=== PATIENT | male | born 1965 | race Caucasian/White ===

== ENCOUNTER → 2018-05-26 10:53 | Emergency (ER) | payer OTHER ==
[~2018-05-26 10:53] MED LIST: Ketorolac INJ* 60 MG/2 ML VIAL IM ONE
--- NOTE | 2018-05-26 11:51 | ED ---
Lower Extremity - HPI Summary HPI Summary: A 53 y/o M presents to ED with c/o sudden-onset, severe R knee pain onset [employer]. Patient was at work and moving a chemical drum when his R foot slipped out from underneath him, and his knee bent inward. He heard or felt a sudden snap and pop. He was not able to stand after the incident. The pain was also shooting down his RLE. Associated sx: mild R hip pain. Denies R ankle pain. He denies any previous injury to his RLE nor to his back. He takes Prilosec, Lexapro daily. - History of Current Complaint Chief Complaint: EDExtremityLower Stated Complaint: FALL AT WORK KNEE INJURY Time Seen by Provider: 05/26/18 10:59 Hx Obtained From: Patient Onset of Pain: Immediate, Post Accident, Prior to Arrival Onset/Duration: Still Present Severity Initially: Moderate Severity Currently: Moderate Pain Intensity: 4 Pain Scale Used: 0-10 Numeric Timing: Constant Location: Is Discrete @ - R knee Associated Signs And Symptoms: Positive: Knee Pain, Other - pos: mild R hip pain ; neg: R ankle pain Able to Bear Weight: No Related History: Occupational Injury PMH/Surg Hx/FS Hx/Imm Hx Previously Healthy: Yes Musculoskeletal History: Denies: Hx Back Problems Opthamlomology History: Denies: Hx Legally Blind EENT History: Denies: Hx Deafness Neurological History: Denies: Hx Dementia Infectious Disease History: No Infectious Disease History: Denies: Traveled Outside the [place] in Last 30 Days - Social History Occupation: Employed Full-time Lives: With Family Alcohol Use: Daily Hx Substance Use: No Substance Use Type: Reports: None Hx Tobacco Use: No Smoking Status (MU): Never Smoked Tobacco Review of Systems Negative: Fever, Chills Negative: Erythema Negative: Sore Throat Negative: Chest Pain Negative: Shortness Of Breath, Cough Negative: Abdominal Pain, Vomiting, Nausea Negative: dysuria, hematuria Positive: Arthralgia - pos: R knee pain, mild R hip pain. neg: R ankle pain. Negative: Myalgia, Edema Negative: Rash Neurological: Other - neg: dizziness All Other Systems Reviewed And Are Negative: Yes Physical Exam - Summary Physical Exam Summary: Constitutional: Well-developed, Well-nourished, Alert. (-) Distressed Skin: Warm, Dry HENT: Normocephalic; Atraumatic Eyes: Conjunctiva normal Neck: Musculoskeletal ROM normal neck. (-) JVD, (-) Stridor, (-) Tracheal deviation Cardio: Rhythm regular, rate normal, Heart sounds normal; Intact distal pulses; The pedal pulses are 2+ and symmetric. Radial pulses are 2+ and symmetric. (-) Murmur Pulmonary/Chest wall: Effort normal. (-) Respiratory distress, (-) Wheezes, (-) Rales Abd: Soft, (-) epigastric tenderness, (-) Distension, (-) Guarding, (-) Rebound Musculoskeletal: (-) Edema. RLE: Significant pain with valgus stress and no bony tenderness. Unable to extend RLE due to pain, cannot r/o patella tendon injury Lymph: (-) Cervical adenopathy Neuro: Alert, Oriented x3 Psych: Mood and affect Normal Triage Information Reviewed: Yes Vital Signs On Initial Exam: Initial Vitals Temp Pulse Resp BP Pulse Ox 98.2 F 73 18 166/92 94 05/26/18 10:55 05/26/18 10:55 05/26/18 10:55 05/26/18 10:55 05/26/18 10:55 Vital Signs Reviewed: Yes Diagnostics - Vital Signs Vital Signs Temp Pulse Resp BP Pulse Ox 05/26/18 10:55 98.2 F 73 18 166/92 94 - Laboratory Lab Statement: Any lab studies that have been ordered have been reviewed, and results considered in the medical decision making process. - Radiology R HIP/PELVIS Radiology Interpretation Completed By: Radiologist Summary of Radiographic Findings: IMPRESSION: No fracture of the right hip or pelvis. ED provider has reviewed this report. R ANKLE Radiology Interpretation Completed By: Radiologist Summary of Radiographic Findings: IMPRESSION: NO ACUTE OSSEOUS INJURY. IF SYMPTOMS PERSIST, RECOMMEND REPEAT IMAGING. ED provider has reviewed this report. R KNEE Radiology Interpretation Completed By: Radiologist Summary of Radiographic Findings: IMPRESSION: No fracture of the right knee is noted. ED provider has reviewed this report. Lower Extremity Course/Dx - Course Course Of Treatment: Pt is a 53 y/o M presenting withsudden-onset, severe R knee pain onset [employer]. Patient was at work moving a chemical drum, when his R foot slipped out from underneath him, and his knee bent inward. He heard or felt a sudden snap and pop. He was not able to stand after the incident. The pain was also shooting down his RLE. Associated sx: mild R hip pain. Denies R ankle pain. He denies any previous injury to his RLE nor to his back. Pt is from [place] and mentioned seeing an orthopedist there. He is requesting non- opiod pain medication due to side effects of consitpation. - Diagnoses Provider Diagnoses: Right knee pain, Injury of ligament of right knee Discharge - Sign-Out/Discharge Documenting (check all that apply): Patient Departure - D/C Patient Received Moderate/Deep Sedation with Procedure: No - Discharge Plan Condition: Stable Disposition: HOME Prescriptions: Ketorolac TAB * [Toradol TAB *] 10 mg PO Q6H PRN #15 tab PRN Reason: Pain - Mild To Moderate Patient Education Materials: Ketorolac (By mouth), Crutch Instructions (ED), Knee Pain (ED) Forms: *Work Release Referrals: Wilfrido Perry PA [Primary Care Provider] - Jakub Dobbs MD [Medical Doctor] - 2 Days Additional Instructions: Return to the emergency department for changing or worsening symptoms. Follow up with Dr. Dobbs, orthopedics, (or with an orthopedist in the [place] area) in 2-3 days. - Attestation Statements Document Initiated by Scribe: Yes Documenting Scribe: Adolfo Carrasco Provider For Whom Scribe is Documenting (Include Credential): Dr. Jose Miguel Elliott MD Scribe Attestation: Marj, leonila Kaplaned for Dr. Jose Miguel Elliott MD on 05/26/18 at 1215. Status of Scribe Document: Ready
[2018-05-26 13:52] VITALS: BP 155/89
== END | disposition home or self-care (01) ==
LOC: ED 10:53
DX: M25.561 Pain in right knee (principal); S83.511A Sprain of anterior cruciate ligament of right knee, initial encounter; W01.0XXA Fall on same level from slipping, tripping and stumbling without subsequent striking against object, initial encounter; Y92.9 Unspecified place or not applicable
CPT/HCPCS: 96372; 99282; J1885